=== PATIENT | male | born 2000 | race Caucasian/White ===

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

== ENCOUNTER 2020-08-10 00:55 | Emergency (ER) | payer BC ==
[~2020-08-10] VITALS: Ht 185.4 cm; Wt 104.0 kg
--- NOTE | 2020-08-10 01:31 | NUR ---
pt took medication for erectile dysfunction and states erection has been going on for about 5 hours. pt denies pain or dyscomfort at this time, pt on continuous pulse ox, erp at bedside
[2020-08-10] MEDS ORDERED: BUPIVACAINE/PF 0.5% ONE (01:42)
[2020-08-10] MEDS: PHENYLEPHRINE IC ONE ×2 (01:57→01:58)
[2020-08-10] MEDS: SODIUM CHLORIDE 0.9% IC ONE ×2 (01:57→01:58)
[2020-08-10] MEDS: BUPIVACAINE/PF 0.5% INFIL ONE ×2 (01:57→01:58)
[2020-08-10] MEDS ORDERED: SODIUM CHLORIDE 0.9% IV ONE (02:00)
[2020-08-10] MEDS ORDERED: PHENYLEPHRINE IV ONE (02:00)
[2020-08-10 03:00] VITALS: BP 159/72
--- NOTE | 2020-08-10 03:02 | NUR ---
pt states feeling much better, joking around with friend in room, vss
== END 2020-08-10 03:21 | disposition home or self-care (01) ==
LOC: ED 01:38
DX: N48.33 Priapism, drug-induced (principal)
CPT/HCPCS: 54220; 99284